=== PATIENT | female | born 1950 | race Caucasian/White ===

== ENCOUNTER 2018-05-25 06:33 | Inpatient (IN) | payer OTHER ==
[2018-05-20 14:55] VITALS: BMI 32.8
[2018-05-25] MEDS ORDERED: CEFAZOLIN 2 GM in DEXTROSE 5%-WATER - 100 ML IVPB ONE (07:03)
[2018-05-25] MEDS ORDERED: oxyCODONE HCL 10 MG SUSTAINED ACTING TABLET PO STA (07:03)
[2018-05-25] MEDS ORDERED: GABAPENTIN 300 MG CAPSULE (FP) PO STA (07:03)
[2018-05-25] MEDS ORDERED: THROMBIN (BOVINE) 5,000 UNIT VIAL TP ONE ×2 (07:08→09:54)
--- NOTE | 2018-05-25 07:16 | HP ---
History & Physical Update - History History: No Change - Physical Physical: No Change - Assessment Assessment: No Change - Plan Plan: No Change (Initial H&P located in paper chart. No new complaints or medictions. Scheduled for elective L4/5 TLIF.)
[2018-05-25] MEDS ORDERED: MIDAZOLAM HCL 2 MG/2 ML SINGLE DOSE VIAL ONE ×4 (07:36→10:15)
[2018-05-25] MEDS ORDERED: BUPIVACAINE HCL/PF (5 MG/ML) 30 ML VIAL IJ ONE (07:54)
[2018-05-25] MEDS ORDERED: ONDANSETRON 4 MG/2 ML VIAL ONE (09:09)
[2018-05-25] MEDS ORDERED: DEXAMETHASONE SOD PHOSPHATE 4 MG/1 ML VIAL ONE (09:09)
[2018-05-25] MEDS ORDERED: ceFAZolin SODIUM 1 GM VIAL ONE (09:11)
[2018-05-25] MEDS ORDERED: GELATIN SPONGE,ABSORBABLE 1 GM PACKET TP ONE (09:54)
[2018-05-25] MEDS ORDERED: ONDANSETRON 4 MG/2 ML VIAL IVPUSH PRN ×4 (10:16→19:11)
[2018-05-25] MEDS ORDERED: BISACODYL 5 MG TABLET.DR (FP) PO PRN (10:16)
[2018-05-25] MEDS ORDERED: oxyCODONE HCL 5 MG TABLET PO PRN ×3 (10:16→11:23)
[2018-05-25] MEDS ORDERED: IBUPROFEN 800 MG/8 ML IJ IVPB PRN (10:16)
[2018-05-25] MEDS ORDERED: DOCUSATE SODIUM 100 MG CAPSULE (FP) PO PRN (10:16)
[2018-05-25] MEDS ORDERED: ACETAMINOPHEN 325 MG TABLET (FP) PO PRN (10:16)
[2018-05-25] MEDS ORDERED: ACETAMINOPHEN 1000 MG/100 ML VIAL (NON FORMULARY) IVPB ONE (11:26)
[2018-05-25] MEDS ORDERED: LACTATED RINGERS SOLUTION 1,000 ML IV SCH ×2 (11:30→11:45)
--- NOTE | 2018-05-25 11:30 | OP ---
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
--- NOTE | 2018-05-25 11:32 | SURG ---
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 For further detail, please refer to operative report. Visit type - Case Type Case Type: Scheduled - New patient This patient is new to me today: Yes Date on this admission: 05/25/18
[2018-05-25] MEDS ORDERED: ACETAMINOPHEN INJECTION 100 ML IVPB ONE (12:05)
[2018-05-25] MEDS ORDERED: oxyCODONE HCL 5 MG TABLET ONE (12:19)
[2018-05-25] MEDS: oxyCODONE HCL 5 MG TABLET PO PRN ×3 (12:20→23:00)
[2018-05-25] MEDS: CYCLOBENZAPRINE HCL 10 MG TABLET (FP) PO SCH ×2 (16:52→21:12)
[2018-05-25] MEDS: diazePAM 2 MG TABLET PO SCH (18:04)
[2018-05-25] MEDS: CEFAZOLIN 1 GM/D5W 1 GM/50 ML BAG IVPB SCH (18:13)
[2018-05-25] MEDS: ACETAMINOPHEN 325 MG TABLET (FP) PO SCH (18:14)
[2018-05-25] MEDS ORDERED: SODIUM CHLORIDE 1,000 ML IV SCH (19:15)
[2018-05-25] MEDS ORDERED: clonazePAM 2 MG TABLET PO SCH (22:00)
[2018-05-25] MEDS ORDERED: diazePAM 2 MG TABLET PO SCH (22:00)
[2018-05-26] MEDS: ACETAMINOPHEN 325 MG TABLET (FP) PO SCH ×2 (00:11→06:11)
[2018-05-26] MEDS: CEFAZOLIN 1 GM/D5W 1 GM/50 ML BAG IVPB SCH (01:10)
[2018-05-26] MEDS: oxyCODONE HCL 5 MG TABLET PO PRN ×2 (06:10→08:39)
[2018-05-26] MEDS: diazePAM 2 MG TABLET PO SCH (06:11)
[2018-05-26] MEDS: CYCLOBENZAPRINE HCL 10 MG TABLET (FP) PO SCH (06:11)
[2018-05-26 06:39] VITALS: BP 138/65; PULSE 95; TEMP 98.8
[2018-05-26 07:42] LABS: HEMATOCRIT 35.4 % (32.4-45.2); HEMOGLOBIN 11.8 GM/dl (10.7-15.3); MCHC 33.4 g/dl (32.0-36.0); MEAN CELL VOLUME 89.7 fl (80-96); PLATELET COUNT 196 K/MM3 (134-434); RBC 3.95 M/mm3 (3.60-5.2); RDW 13.5 % (11.6-15.6); WHITE BLOOD COUNT 8.2 K/mm3 (4.0-10.8)
--- NOTE | 2018-05-26 07:57 | DS ---
Physical Exam: SUBJECTIVE: Patient seen and examined OBJECTIVE: Vital Signs Temperature 98.8 F 05/26/18 06:00 Pulse Rate 95 H 05/26/18 06:00 Respiratory Rate 19 05/26/18 06:00 Blood Pressure 138/65 05/26/18 06:00 O2 Sat by Pulse Oximetry (%) 96 05/26/18 06:00 PHYSICAL EXAM GENERAL: The patient is awake, alert, and fully oriented, in no acute distress. HEAD: Normal with no signs of trauma. EYES: PERRL, extraocular movements intact, sclera anicteric, conjunctiva clear. NECK: Trachea midline, full range of motion LUNGS: breathing comfortably, no accessory muscle use. HEART: Regular rate and rhythm ABDOMEN: Soft, nontender, nondistended, normoactive bowel sounds, no guarding, no rebound, no hepatosplenomegaly, no masses. EXTREMITIES: 2+ pulses, warm, well-perfused, no edema. NEUROLOGICAL: Normal speech, gait not observed. PSYCH: Normal mood, normal affect. SKIN: Warm, dry, normal turgor, no rashes or lesions noted. LABS CBC,CMP WBC 8.2 K/mm3 (4.0-10.8) 05/26/18 06:30 RBC 3.95 M/mm3 (3.60-5.2) 05/26/18 06:30 Hgb 11.8 GM/dl (10.7-15.3) 05/26/18 06:30 Hct 35.4 % (32.4-45.2) 05/26/18 06:30 MCV 89.7 fl (80-96) 05/26/18 06:30 MCH 30.0 pg (25.7-33.7) 05/26/18 06:30 MCHC 33.4 g/dl (32.0-36.0) 05/26/18 06:30 RDW 13.5 % (11.6-15.6) 05/26/18 06:30 Plt Count 196 K/MM3 (134-434) 05/26/18 06:30 MPV 9.0 fl (7.5-11.1) 05/26/18 06:30 HOSPITAL COURSE: Date of Admission:05/25/18 Date of Discharge: 05/26/18 The patient was admitted to the Med-Surg Unit after an elective repair of their L4/5 Spondylosis Now, s/p L4/5 fusion. The day of surgery, the patient ambulated the hallways with assistance. Narcotic and non-narcotic pain management control was achieved with an oral and IV approach. POD #1, the surgical drain was removed fully intact and without incident. An xray was obtained and confirmed hardware placement at L4/5, no fractures or dislocations. Ekta-operative IV ABX were administered. DVT prophylaxis was achieved with SCDs and early ambulation. The patient ambulated with Physical Therapy and no services were recommended upon discharge. Narcotic scripts and or muscle relaxants were checked with [place] [employer] prior to escibe. The discharge instructions and an oral pain management plan were reviewed with the patient. All questions answered. Above plan discussed with Dr. Blas and agreed. Minutes to complete discharge: 20 <Lakhwinder Smallwood - Last Filed: 05/26/18 07:53> Physical Exam: SUBJECTIVE: Patient seen and examined OBJECTIVE: Vital Signs Temperature 98.8 F 05/26/18 06:00 Pulse Rate 95 H 05/26/18 06:00 Respiratory Rate 19 05/26/18 06:00 Blood Pressure 138/65 05/26/18 06:00 O2 Sat by Pulse Oximetry (%) 96 05/26/18 06:00 PHYSICAL EXAM GENERAL: The patient is awake, alert, and fully oriented, in no acute distress. HEAD: Normal with no signs of trauma. EYES: PERRL, extraocular movements intact, sclera anicteric, conjunctiva clear. ENT: Ears normal, nares patent, oropharynx clear without exudates, moist mucous membranes. NECK: Trachea midline, full range of motion, supple. LUNGS: Breath sounds equal, clear to auscultation bilaterally, no wheezes, no crackles, no accessory muscle use. HEART: Regular rate and rhythm, S1, S2 without murmur, rub or gallop. ABDOMEN: Soft, nontender, nondistended, normoactive bowel sounds, no guarding, no rebound, no hepatosplenomegaly, no masses. EXTREMITIES: 2+ pulses, warm, well-perfused, no edema. NEUROLOGICAL: Cranial nerves II through XII grossly intact. Normal speech, gait not observed. PSYCH: Normal mood, normal affect. SKIN: Warm, dry, normal turgor, no rashes or lesions noted. LABS CBC,CMP WBC 8.2 K/mm3 (4.0-10.8) 05/26/18 06:30 RBC 3.95 M/mm3 (3.60-5.2) 05/26/18 06:30 Hgb 11.8 GM/dl (10.7-15.3) 05/26/18 06:30 Hct 35.4 % (32.4-45.2) 05/26/18 06:30 MCV 89.7 fl (80-96) 05/26/18 06:30 MCH 30.0 pg (25.7-33.7) 05/26/18 06:30 MCHC 33.4 g/dl (32.0-36.0) 05/26/18 06:30 RDW 13.5 % (11.6-15.6) 05/26/18 06:30 Plt Count 196 K/MM3 (134-434) 05/26/18 06:30 MPV 9.0 fl (7.5-11.1) 05/26/18 06:30 Sodium 138 mmol/L (136-145) 05/26/18 06:30 Potassium 4.1 mmol/L (3.5-5.1) 05/26/18 06:30 Chloride 102 mmol/L (98-107) 05/26/18 06:30 Carbon Dioxide 30 mmol/L (21-32) 05/26/18 06:30 Anion Gap 6 MMOL/L (8-16) L 05/26/18 06:30 BUN 16 mg/dl (7-18) 05/26/18 06:30 Creatinine 0.9 mg/dl (0.55-1.3) 05/26/18 06:30 Creat Clearance w eGFR > 60 (>60) 05/26/18 06:30 Random Glucose 115 mg/dl (74-106) H 05/26/18 06:30 Calcium 9.1 mg/dl (8.5-10) 05/26/18 06:30 HOSPITAL COURSE: Date of Admission:05/25/18 Date of Discharge: 05/26/18 Patient seen and examined Agree with above D/C Planning <Duane Blas - Last Filed: 05/26/18 15:11> Visit type - Case Type Case Type: Scheduled - Emergency Emergency Visit: No - New patient This patient is new to ms today: No <Lakhwinder Smallwood - Last Filed: 05/26/18 07:53>
[2018-05-26 08:00] LABS: ANION GAP 6 MMOL/L (8-16); BLOOD UREA NITROGEN 16 mg/dl (7-18); CALCIUM 9.1 mg/dl (8.5-10); CHLORIDE 102 mmol/L (98-107); CO2 30 mmol/L (21-32); CREATININE 0.9 mg/dl (0.55-1.3); GLUCOSE,RANDOM 115 mg/dl (74-106); POTASSIUM 4.1 mmol/L (3.5-5.1); SODIUM 138 mmol/L (136-145)
--- NOTE | 2018-05-26 09:58 | OP ---
DATE OF OPERATION: 05/25/2018 PREOPERATIVE DIAGNOSES: 1. L4-5 spondylolisthesis. 2. L4-5 spinal stenosis. POSTOPERATIVE DIAGNOSES: 1. L4-5 spondylolisthesis. 2. L4-5 spinal stenosis. PROCEDURE PERFORMED: 1. L4-5 transforaminal lumbar interbody fusion. 2. Placement of instrumentation, L4-5. 3. Placement of cage. SURGEON: Duane Blas MD DRAPERY CUTTER: ASBINA Fernandez ESTIMATED BLOOD LOSS: 50 mL INTRAVENOUS FLUIDS: Per Anesthesia. ANESTHESIA: Spinal/TLIP. COMPLICATIONS: None. DISPOSITION: Patient brought to the PACU in stable condition. INDICATIONS FOR SURGERY: The patient is a 67-year-old female who has been suffering from pain from her back down her legs. X-rays and MRI were completed which noted that she had spinal stenosis at L4-5 secondary to a spondylolisthesis. She had gone through an exhaustive course of treatment which included medications, physical therapy, as well as injections. Unfortunately, her pain continued to persist despite all this. At this point, risks, benefits, and alternatives were discussed, and the patient consented to surgery. DESCRIPTION OF PROCEDURE: Patient was brought to the operating room by the anesthesia staff. After appropriate patient identification was performed, spinal anesthesia was given. A TLIP block was also given. Patient was able to position herself prone onto the OR table with all areas of bony prominences well padded at this time. Neuromonitoring leads were attached. C-arm was brought in. The L4 and L5 pedicles were marked off. Her back was prepped and draped in a sterile manner. At this point, a timeout was completed. Incisions were made bilaterally over the L4 and L5 pedicles. Dissection was carried down to the fascia. Fascia was split open at this time. Appropriate retractor was then placed in. Trocars were advanced into both the L4 and L5 pedicles under C-arm guidance. Wires inserted. Tap was performed. On the right-hand side, retractor blades were set up to expose the L4-5 facet joint. The facet joint was removed. The disk was entered using a series of pituitaries, Kerrisons, and curettes. The diskectomy was completed. The endplates were decorticated at this time. Bone graft was laid down. A cage filled with bone graft was placed in. Tulip pads were placed over the screws. A awilda was measured and placed in. Caps with final tightening were performed in compression. The left-hand side, a awilda was measured and placed in. Compression and final tightening were performed. All instrumentation was removed at this time. The fascia was closed with a number 1 Vicryl suture. Subcutaneous tissue was closed with 2-0 Vicryl suture. Skin was closed using 3-0 Monocryl suture. Dermabond was applied. Steri-Strips were applied. A sterile dressing was applied. Patient was placed supine on the OR bed and brought to the PACU in stable condition. Manuel [id number]
[2018-05-26] MEDS ORDERED: traZODone HCL 50 MG TABLET (FP) PO SCH (10:00)
[2018-05-26] MEDS ORDERED: GABAPENTIN 300 MG CAPSULE (FP) PO SCH (10:00)
[2018-05-26] MEDS ORDERED: VENLAFAXINE HCL 75 MG E.R. CAPSULES (FP) PO SCH (10:00)
[2018-05-26] MEDS ORDERED: CHOLECALCIFEROL (VITAMIN D3) 1,000 UNIT TABLET (FP) PO SCH (10:00)
[2018-05-26] MEDS ORDERED: ENOXAPARIN NA (PORCINE) 40 MG/0.4 ML DISP.SYRIN SQ SCH (10:00)
== END 2018-05-26 10:00 | disposition home or self-care (01) | DRG 304 ==
LOC: FM/S 06:33
PROVIDERS: ADMIT Orthopaedic Surgery Orthopaedic Surgery of the Spine; ATTEND Orthopaedic Surgery Orthopaedic Surgery of the Spine
PROC: 4A1004G Monitoring of Central Nervous Electrical Activity, Intraoperative, Open Approach (ICD-10-PCS; 2018-05-25)
PROC: 0SG00AJ Fusion of Lumbar Vertebral Joint with Interbody Fusion Device, Posterior Approach, Anterior Column, Open Approach (ICD-10-PCS; principal; 2018-05-25 08:15)
DX: M43.16 Spondylolisthesis, lumbar region (principal); M48.061 Spinal stenosis, lumbar region without neurogenic claudication; M54.16 Radiculopathy, lumbar region
CPT/HCPCS: 36415; 72100-TC-FY; 80048; 85027; 94760; 97116-GP; 97161-GP; J0131